=== PATIENT | female | born 1955 | race Caucasian/White ===

== ENCOUNTER 2019-10-20 07:46 | Inpatient (IN) | payer BC, OTHER ==
[~2019-10-20] VITALS: Ht 167.6 cm; Wt 111.0 kg
[2019-10-20] MEDS ORDERED: HYDROmorphone HCL 2 MG/ML VL IV ONE (08:15)
[2019-10-20] MEDS ORDERED: PROMETHAZINE HCL 25 MG/ML 1ML IV ONE (08:15)
[2019-10-20] MEDS ORDERED: SODIUM CHLORIDE 0.9% 1,000 ML IV ONE (08:21)
[2019-10-20 08:52] LABS: Basophils # (auto) 0 uL; Basophils % (auto) 0.5 % (0.0-2.0); Eosinophils # (auto) 0.1 uL; Eosinophils % (auto) 0.7 % (0.0-7.0); Hematocrit 41.8 % (36.0-46.0); Hemoglobin 13.5 g/dL (12.2-16.2); Lymphocytes # (auto) 1.5 uL; Lymphocytes % (auto) 18.4 % (10.0-50.0); Mean Corpuscular Hemoglobin 26.5 pg (28.0-32.0); Mean Corpuscular Hgb Conc. 32.2 g/dL (32.0-36.0); Mean Corpuscular Volume 82.4 fL (80.0-100.0); Monocytes # (auto) 0.4 uL; Monocytes % (auto) 5.3 % (0.0-12.0); Neutrophils # (auto) 6.1 uL; Neutrophils % (auto) 75.1 % (37.0-80.0); Platelet Count (auto) 276 10^3/uL (140-450); Red Blood Cells 5.07 10^6/uL (4.0-5.20); Red Cell Distribution Width 15.3 % (11.8-14.3); White Blood Cell 8.1 10^3/uL (4.4-10.8)
[2019-10-20 09:10] LABS: Albumin 3.8 g/dL (3.4-5.0); Anion Gap 8 (5-15); Blood Urea Nitrogen 13 mg/dL (7-18); Calcium 8.7 mg/dL (8.5-10.1); Carbon Dioxide 27 mmol/L (21-32); Chloride 104 mmol/L (98-107); Glucose 132 mg/dL (74-106); Potassium 4.4 mmol/L (3.5-5.1); Sodium 139 mmol/L (136-145)
[2019-10-20 09:11] LABS: INR 0.99 (0.9-1.15)
[2019-10-20 09:12] LABS: Alanine Aminotransferase 27 U/L (13-56); Aspartate Aminotransferase 14 U/L (15-37); BUN/Creatinine Ratio 15.9; GFR African American 91 mL/min; GFR Non-African American 75 mL/min
[2019-10-20 09:17] LABS: Alkaline Phosphatase 104 U/L (45-117); Bilirubin, Total 0.8 mg/dL (0.2-1.0); Total Protein 7.6 g/dL (6.4-8.2)
[2019-10-20] MEDS ORDERED: DEXTROSE (50%) 50ML SYRG IV PRN (11:15)
[2019-10-20] MEDS ORDERED: TEMAZEPAM 15 MG CAP PO PRN (11:15)
[2019-10-20] MEDS ORDERED: traMADol HCL 50 MG TAB PO PRN (11:15)
[2019-10-20] MEDS: SODIUM CHLORIDE 0.9% 1,000 ML IV SCH ×2 (11:52→23:12)
[2019-10-20] MEDS: MORPHINE SULF INJ 2 MG/ML SYRINGE 1ML IV PRN ×3 (11:52→20:48)
[2019-10-20 13:08] LABS: Urine Bacteria NONE SEEN /hpf (None Seen); Urine Blood Negative /uL (Negative); Urine Mucus FEW (None Seen); Urine Specific Gravity 1.022 (1.001-1.035); Urine WBC 1 /hpf (0 - 5)
--- NOTE | 2019-10-20 15:30 | NUR ---
Patient arrived to the floor
--- NOTE | 2019-10-20 16:02 | NUR ---
Cardio Dr Hammonds at bedside. Cleared the patient for surgery.
[2019-10-20 17:00] VITALS: BP 150/84
--- NOTE | 2019-10-20 19:10 | NUR ---
Opening Shift Note Received report from KAREN Cavazos RN. Assumed care of patient, awake and alert. No S/S of distress/SOB but complaints of pain to right leg and back pain. Will given pain medication as ordered. Family at bedside. Instructed on POC and to call for assist PRN, will continue to monitor for changes Q1hr and PRN. Bed placed in lowest position, bed alarm turned on and call light within reach.
[2019-10-20 20:00] VITALS: BP 140/82
--- NOTE | 2019-10-20 21:00 | NUR ---
Dr Servin at bedside explaining to the patient that surgery will be move up until 10/21/19 at 0700. Patient verbalized understanding.
[2019-10-20 22:00] VITALS: BP 140/82
[2019-10-20] MEDS: ATORVASTATIN 20 MG TAB PO SCH (22:00)
[2019-10-20] MEDS: diphenhdrAMINE HCL 25 MG CAP PO PRN (22:09)
[2019-10-20] MEDS: HYDROmorphone HCL 2 MG/ML VL IV PRN (22:09)
[2019-10-21] MEDS: HYDROmorphone HCL 2 MG/ML VL IV PRN ×4 (00:11→08:10)
[2019-10-21 05:00] VITALS: BP 114/69
--- NOTE | 2019-10-21 08:10 | NUR ---
Dilaudid Inj 1 mg given for pain level at 06/03. Family at bedside.
[2019-10-21] MEDS: SODIUM CHLORIDE 0.9% 1,000 ML IV SCH (08:17)
[2019-10-21 08:47] VITALS: BP 111/69
--- NOTE | 2019-10-21 09:03 | NUR ---
Transferred patient via bed to PACU/OR/Surgery. Patient awake, oriented x4, no acute distress noted, on Graham catheter draining clear, yellowish with light pink stained urine. IV line intact and patent. Two daughters at bedside. Endorsed patient to QUILL PICKING MACHINE OPERATORBROOKLYNN Hendricks.
[2019-10-21] MEDS ORDERED: ceFAZolin 1GM/50ML 100 ML IV ONE (09:11)
[2019-10-21] MEDS: METOPROLOL SUCCINATE XL 50 MG TAB PO SCH (10:00)
[2019-10-21] MEDS: CITALOPRAM HYDROBR 20 MG TAB PO SCH (10:00)
--- NOTE | 2019-10-21 10:00 | NUR ---
Patient off unit. At Surgery.
--- NOTE | 2019-10-21 10:04 | NUR ---
Dr. Palafox came over. made aware patient at Surgery at this time.
[2019-10-21] MEDS ORDERED: fentaNYL CITRATE 100 MCG/2 ML VL ONE (11:11)
[2019-10-21] MEDS ORDERED: ROCURONIUM 10MG/ML 10ML VIAL IV ONE (11:12)
[2019-10-21] MEDS ORDERED: ONDANSETRON HCL 4 MG/2 ML VIAL IV PRN (13:15)
[2019-10-21] MEDS ORDERED: hydrALAZINE HCL 20 MG/ML VL IV PRN (13:15)
[2019-10-21] MEDS ORDERED: ePHEDrine SULFATE 50 MG/ML AMP IV PRN (13:15)
--- NOTE | 2019-10-21 13:37 | NUR ---
Pharmacist called regarding the Ephedrine order, patient has Pseudoephedrine allergy. Informed the Pharmacist that patient is at OR/Surgery at this time, they have to call Surgery.
[2019-10-21] MEDS: MORPHINE SULF INJ 2 MG/ML SYRINGE 1ML IV PRN ×3 (13:47→14:35)
--- NOTE | 2019-10-21 14:30 | NUR ---
Patient back to room post op intramedullary nailing of the right femur. Surgical dressing on the right hip clean, dry and intact, on Graham catheter with cloudy, pink stained yellowish urine.
[2019-10-21] MEDS: ceFAZolin 1GM/50ML 50 ML IV SCH ×2 (14:52→21:56)
[2019-10-21 16:44] VITALS: BP 130/68
--- NOTE | 2019-10-21 17:00 | NUR ---
Patient's daughter complained that patient on 271A is always talking on the phone loudly, smells like cigarette, requested if patient can be transferred to another room so the patient could rest better post surgery. Charge Nurse Jace made aware. Jace said patient can be transferred to Room 272A.
--- NOTE | 2019-10-21 17:15 | NUR ---
Patient upgraded to Telemetry. Transferred from Room 271B to 272A.
[2019-10-21] MEDS: ACETAMINOPHEN 500 MG TAB PO PRN (20:05)
[2019-10-21] MEDS: PROMETHAZINE HCL 25 MG/ML 1ML IV PRN (20:05)
[2019-10-21 21:40] VITALS: BP 134/69
[2019-10-21] MEDS: ATORVASTATIN 20 MG TAB PO SCH ×2 (21:56→22:00)
[2019-10-22] MEDS: ACETAMINOPHEN 500 MG TAB PO PRN ×2 (03:14→18:54)
[2019-10-22 04:52] VITALS: BP 113/53
[2019-10-22] MEDS: ceFAZolin 1GM/50ML 50 ML IV SCH ×3 (05:46→21:49)
[2019-10-22 06:48] LABS: Basophils # (auto) 0 uL; Basophils % (auto) 0.3 % (0.0-2.0); Eosinophils # (auto) 0.1 uL; Eosinophils % (auto) 0.8 % (0.0-7.0); Hematocrit 30.4 % (36.0-46.0); Hemoglobin 10.2 g/dL (12.2-16.2); Lymphocytes # (auto) 1.7 uL; Mean Corpuscular Hemoglobin 27.8 pg (28.0-32.0); Mean Corpuscular Hgb Conc. 33.7 g/dL (32.0-36.0); Mean Corpuscular Volume 82.5 fL (80.0-100.0); Monocytes # (auto) 0.9 uL; Monocytes % (auto) 9.4 % (0.0-12.0); Neutrophils # (auto) 7.1 uL; Neutrophils % (auto) 72.5 % (37.0-80.0); Platelet Count (auto) 201 10^3/uL (140-450); Red Blood Cells 3.69 10^6/uL (4.0-5.20); Red Cell Distribution Width 15.4 % (11.8-14.3); White Blood Cell 9.8 10^3/uL (4.4-10.8)
[2019-10-22 07:06] LABS: Calcium 8.3 mg/dL (8.5-10.1); Potassium 3.6 mmol/L (3.5-5.1)
[2019-10-22 07:09] LABS: BUN/Creatinine Ratio 12.1
[2019-10-22] MEDS: MORPHINE SULF INJ 2 MG/ML SYRINGE 1ML IV PRN (07:39)
--- NOTE | 2019-10-22 08:15 | NUR ---
Patient's gown off, on the right side of the bed, patient covered only with blanket. Patient stated she took off her gown because it's hot.
[2019-10-22 09:00] VITALS: BP 116/69
--- NOTE | 2019-10-22 10:20 | NUR ---
Explained to patient she needs to be put on a hospital gown before the physical therapy starts.
[2019-10-22] MEDS: ENOXAPARIN SOD 40 MG/0.4 ML SYRINGE SC SCH (10:31)
[2019-10-22] MEDS: CITALOPRAM HYDROBR 20 MG TAB PO SCH (10:32)
[2019-10-22] MEDS: METOPROLOL SUCCINATE XL 50 MG TAB PO SCH (10:32)
[2019-10-22] MEDS: HYDROmorphone HCL 2 MG/ML VL IV PRN (10:34)
--- NOTE | 2019-10-22 10:34 | NUR ---
Patient asked for pain medication before her physical therapy starts, stated her right hip and leg pain is going up. Dilaudid Inj 1 mg given for pain as ordered.
--- NOTE | 2019-10-22 10:37 | NUR ---
Patient complained of pain when assisted to be turned. Patient unable to turn, stated she's scared. Daughter at bedside.
--- NOTE | 2019-10-22 10:38 | NUR ---
Changed the surgical dressing on the right hip area/upper leg. Surgical mercedez intact, with minimal bleeding on the upper incision site, pat dry with sterile gauze, applied Xeroform, covered with bordered gauze. Patient complained of pain when turned.
--- NOTE | 2019-10-22 10:39 | NUR ---
Dr. Palafox ordered Hemoglobin and Hematocrit level at 1500 pm today, and ordered to ask Dr. Servin if patient should go to rehab on discharge.
--- NOTE | 2019-10-22 10:40 | NUR ---
Dr. Palafox at bedside. made aware patient complained of stomach cramps, asked if she can have Tums, patient also complained of difficulty sleeping at night, stated she takes Melatonin and Benadryl daily at home for insomnia. Dr. Palafox explained to patient the risks of taking Benadryl daily to fall asleep. MD ordered Tums as needed for stomach distress and Melatonin at bedtime as needed for insomnia. Daughter at bedside.
--- NOTE | 2019-10-22 10:40 | NUR ---
Patient asked for Tylenol for pain. Explained to patient she just had Dilaudid Inj. Tylenol PO not given at this time. Daughter at bedside.
--- NOTE | 2019-10-22 10:45 | NUR ---
Daughter asked if patient can have wheelchair on discharge . Explained to patient and daughter a Environmental Engineer Consult for request for wheelchair will be put in.
--- NOTE | 2019-10-22 10:46 | NUR ---
Informed patient and daughter that [facility] does not carry Melatonin as per Pharmacy. Daughter said she will call her sister to bring the Melatonin from home.
[2019-10-22] MEDS ORDERED: CALCIUM CARB 500 MG CHEW TAB PO PRN (11:15)
[2019-10-22] MEDS ORDERED: MELATONIN 10 MG PO PRN (11:15)
--- NOTE | 2019-10-22 11:30 | NUR ---
TAHMINA Lugo unable to complete the patient's physical therapy. Patient is confused, yelling in pain when turned or moved.
--- NOTE | 2019-10-22 11:32 | NUR ---
Patient in chair for physical therapy. Daughter at bedside.
--- NOTE | 2019-10-22 11:40 | NUR ---
About 1200 ml of light leonid urine emptied form the Graham catheter. Addendum: 10/22/19 at 1447 by Leona Lam RN from
--- NOTE | 2019-10-22 11:43 | NUR ---
Daughter said patient does not get confused with Morphine.
--- NOTE | 2019-10-22 11:44 | NUR ---
Dr. Palafox made aware patient gets confused with Dilaudid Inj. ordered Morphine Sulf Inj 1mg Q6 PRN for severe pain.
--- NOTE | 2019-10-22 11:45 | NUR ---
Paged Physical Therapist
[2019-10-22] MEDS ORDERED: MORPHINE SULFATE 4 MG/ML SYR/VIAL IV PRN (12:00)
[2019-10-22] MEDS ORDERED: MORPHINE SULF INJ 2 MG/ML SYRINGE 1ML IV PRN (12:00)
--- NOTE | 2019-10-22 12:04 | NUR ---
Informed Dr. Palafox that patient's daughter requested if patient can have Tylenol w/Codeine, not the regular Tylenol. Dr. Palafox said patient has orders for Morphine Sulf Inj 1 mg already, will not order Tylenol w/Codeine.
[2019-10-22 12:30] VITALS: BP 155/81
--- NOTE | 2019-10-22 13:20 | NUR ---
Dr. Servin came over to see the patient. MD is aware patient got confused after Dilaudid Inj. Dr. Servin said it's okay to keep the Graham catheter for the next two days. Patient is scared to walk during physical therapy.
--- NOTE | 2019-10-22 15:05 | NUR ---
Patient stated it's so hot in the room. Room is very cold at 65 F. ANUM Man said the patient on Bed B said patient was trying to get up from bed. Patient kept saying "yes," "alright" when asked a question where she is. Patient denies pain, denies stomach distress. Informed Charge Nurse Tamara that patient needs a sitter.
[2019-10-22 15:29] LABS: Hematocrit 29.1 % (36.0-46.0); Hemoglobin 9.8 g/dL (12.2-16.2)
--- NOTE | 2019-10-22 16:10 | NUR ---
Riky Russell stated that patient takes Celexa 10 mg, Melatonin 10 mg anf Addendum: 10/22/19 at 1629 by Leona Lam RN and Benadryl at home.
[2019-10-22] MEDS ORDERED: MELA3TAB27 PO (16:31)
[2019-10-22] MEDS ORDERED: DIPH25CA66 PO (16:31)
[2019-10-22] MEDS ORDERED: CITA10TA59 PO (16:31)
--- NOTE | 2019-10-22 16:40 | NUR ---
Daughter Yvonne asked if patient's orientation improves, will the patient be moved to another room. Informed Yvonne that if patient's orientation improves, the sitter will be discontinued.
--- NOTE | 2019-10-22 16:40 | NUR ---
Patient transferred via bed from Room 272 A to Room 287 B. Sushil Perla at bedside.
[2019-10-22 16:49] VITALS: BP 136/74
[2019-10-22 17:00] VITALS: BP 121/67
--- NOTE | 2019-10-22 18:20 | NUR ---
Daughter Yvonne at the Nurse Station looking for the Charge Nurse, asking if she can stay with the patient overnight. Patient in a sitter room. Informed the daughter the Charge Nurses are giving endorsement at this time.
--- NOTE | 2019-10-22 18:54 | NUR ---
Patient stated she has headache. Tylenol PO given for pain. Daughter at bedside. Sitter at bedside.
--- NOTE | 2019-10-22 19:20 | NUR ---
Opening Shift Note Received report from Leona OVERTON. Assumed care of patient, awake but confused, daughter at bedside. Sitter for safety. No S/S of distress/SOB or pain. Informed daughter on POC and sitter to call for assist PRN. Fall precaution measures in place, will continue to monitor for changes Q1hr and PRN.
[2019-10-22] MEDS: ATORVASTATIN 20 MG TAB PO SCH (21:54)
[2019-10-22 21:59] VITALS: BP 139/68
[2019-10-23] MEDS ORDERED: HYDROcodone-ACET 7.5/325MG TAB PO PRN (00:30)
[2019-10-23 05:00] VITALS: BP 142/64
[2019-10-23 06:10] LABS: Hemoglobin 9.7 g/dL (12.2-16.2)
[2019-10-23] MEDS: ceFAZolin 1GM/50ML 50 ML IV SCH ×2 (06:10→15:00)
[2019-10-23] MEDS: METOPROLOL SUCCINATE XL 50 MG TAB PO SCH (08:59)
[2019-10-23 09:08] VITALS: BP 133/65
[2019-10-23] MEDS: CITALOPRAM HYDROBR 20 MG TAB PO SCH (10:53)
[2019-10-23] MEDS: ENOXAPARIN SOD 40 MG/0.4 ML SYRINGE SC SCH (10:54)
--- NOTE | 2019-10-23 12:01 | NUR ---
Called [facility] [phone] to ask if patient has SNF benefit and which are their participating facilities-was left on hold for several minutes-not able to speak with a live person and not able to leave a message. Faxed same request to [phone].
--- NOTE | 2019-10-23 12:27 | NUR ---
Nutrition Assessment Notes please see attached link for complete assessment Est. Needs ABW 84 [id number] kcal (20-23 kcal/kgBW), 84-92 gms pro (1.0-1.1 gms/kgBW). Will continue to monitor pertinent labs and reassess nutrient need prn Addendum: 10/23/19 at [address] Amended: Links added.
[2019-10-23 13:00] VITALS: BP 126/71
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
[2019-10-23] MEDS: PROMETHAZINE HCL 25 MG/ML 1ML IV PRN (18:20)
--- NOTE | 2019-10-23 18:54 | NUR ---
DRESSING PEELING OFF FROM SKIN. DRESSING CHANGED USING STERILE TECHNIQUE. PATIENT TOLERATED WELL.
--- NOTE | 2019-10-23 20:00 | NUR ---
Opening Shift Note Assumed care of patient, awake and alert. No S/S of distress/SOB or pain. Instructed on POC and to call for assist PRN, will continue to monitor for changes Q1hr and PRN.Dressing in the right hip femur dry and intact, sitter at bedside.
[2019-10-23] MEDS: ATORVASTATIN 20 MG TAB PO SCH (21:33)
[2019-10-23 21:43] VITALS: BP 125/56
--- NOTE | 2019-10-24 02:14 | NUR ---
Daughter Kinjalanna called and asked how is her mother, and said do not give the celexa till her mom can express herself normally.
[2019-10-24 05:33] VITALS: BP 124/58
[2019-10-24 07:36] LABS: Hemoglobin 9.2 g/dL (12.2-16.2)
--- NOTE | 2019-10-24 07:41 | NUR ---
Report given to Ashish Limon , patient is resting no distress.
--- NOTE | 2019-10-24 09:29 | NUR ---
8081 10/24/19 Contacted Janeth at [facility] [phone]-she requested that I fax clinical information to her at [phone]-faxed information as requested-per Janeth she will forward it to [facility] and will call me back with a contact for supportive employment case manager. Along with clinical information faxed to [facility] I requested assistance with SNF placement/contracted facilities-as well as asking who is responsible for providing in patient authorization.
[2019-10-24] MEDS: CITALOPRAM HYDROBR 20 MG TAB PO SCH (10:00)
[2019-10-24] MEDS: METOPROLOL SUCCINATE XL 50 MG TAB PO SCH (10:00)
[2019-10-24] MEDS: ENOXAPARIN SOD 40 MG/0.4 ML SYRINGE SC SCH (10:43)
[2019-10-24 13:00] VITALS: BP 126/78
--- NOTE | 2019-10-24 14:16 | NUR ---
Contacted Beverley at [facility] regarding needing assistance with discharge planning for this patient. Per Beverley-discharge planning requests need to be faxed to their out of area department [phone] then someone from that department will contact us. Faxed SNF order to provided number.
[2019-10-24] MEDS: PROMETHAZINE HCL 25 MG/ML 1ML IV PRN (15:42)
[2019-10-24] MEDS: ACETAMINOPHEN 500 MG TAB PO PRN (15:42)
[2019-10-24 17:29] VITALS: BP 115/64
--- NOTE | 2019-10-24 18:00 | NUR ---
Changed patients dressing to right hip. Cleansed with sterile normal saline, pat dry and covered with Primapore dressing. There are 4 sites . All mercedez are intact and approximated with no signs of infection noted at this time. Dr. Servin was here at bedside to discuss plan of care with patient.
[2019-10-24] MEDS ORDERED: DOCUSATE SOD 100 MG CAP PO PRN (18:45)
[2019-10-24] MEDS: ATORVASTATIN 20 MG TAB PO SCH (21:03)
[2019-10-24] MEDS: HYDROcodone-ACET 5/325MG TAB PO PRN (21:04)
[2019-10-24] MEDS: diphenhdrAMINE HCL 25 MG CAP PO PRN (21:04)
[2019-10-24 21:26] VITALS: BP 125/61
[2019-10-25 04:38] VITALS: BP 128/53
--- NOTE | 2019-10-25 07:30 | NUR ---
Opening Shift Note Assumed care of patient, awake and alert. No S/S of distress/SOB. For safety patients bed is locked, in the lowest position with 2 side rails up and the call light with in reach. Instructed on POC and to call for assist PRN, will continue to monitor for any changes in condition.
[2019-10-25 08:52] LABS: Hematocrit 28.3 % (36.0-46.0); Hemoglobin 9.5 g/dL (12.2-16.2)
[2019-10-25 09:00] VITALS: BP 131/64
[2019-10-25] MEDS: CITALOPRAM HYDROBR 20 MG TAB PO SCH (09:37)
[2019-10-25] MEDS: METOPROLOL SUCCINATE XL 50 MG TAB PO SCH (09:37)
[2019-10-25] MEDS: ENOXAPARIN SOD 40 MG/0.4 ML SYRINGE SC SCH (09:39)
[2019-10-25] MEDS: HYDROcodone-ACET 5/325MG TAB PO PRN ×3 (09:40→21:50)
[2019-10-25 12:33] VITALS: BP 102/58
--- NOTE | 2019-10-25 13:06 | NUR ---
Correa catheter dc'd Correa dc'd with clean technique following deflation of balloon. Patient tolerated well with no complaints of pain, will monitor for first void after correa is out.
--- NOTE | 2019-10-25 15:05 | NUR ---
Dr. Reis at bedside to assess patient and discuss plan of care. Order received, will document and carry out.
[2019-10-25] MEDS ORDERED: IBUPROFEN 600 MG TAB PO PRN (15:15)
--- NOTE | 2019-10-25 16:03 | NUR ---
Patient notified me that she just urinated in the bed singh filling it up, approximately 400 mL.
[2019-10-25 16:57] VITALS: BP 122/71
[2019-10-25 21:31] VITALS: BP 126/58
[2019-10-25] MEDS: ATORVASTATIN 20 MG TAB PO SCH (21:50)
[2019-10-25] MEDS: diphenhdrAMINE HCL 25 MG CAP PO PRN (21:50)
--- NOTE | 2019-10-25 23:16 | NUR ---
Moved patient into room 280 B. Patient is alert and oriented x 4. Her demeanor is appropriate and the patient is calm.
--- NOTE | 2019-10-26 03:00 | NUR ---
Received report from BROOKLYNN Limon and assumed care.
[2019-10-26 04:45] VITALS: BP 133/71
[2019-10-26 06:24] LABS: Basophils # (auto) 0.1 uL; Basophils % (auto) 0.8 % (0.0-2.0); Eosinophils # (auto) 0.5 uL; Eosinophils % (auto) 5.6 % (0.0-7.0); Hemoglobin 9.8 g/dL (12.2-16.2); Lymphocytes # (auto) 1.7 uL; Lymphocytes % (auto) 19.9 % (10.0-50.0); Mean Corpuscular Hemoglobin 28.2 pg (28.0-32.0); Mean Corpuscular Hgb Conc. 33.7 g/dL (32.0-36.0); Mean Corpuscular Volume 83.8 fL (80.0-100.0); Monocytes # (auto) 0.6 uL; Monocytes % (auto) 6.9 % (0.0-12.0); Neutrophils # (auto) 5.8 uL; Neutrophils % (auto) 66.8 % (37.0-80.0); Nucleated Red Blood Cells % 0.2 %; Platelet Count (auto) 308 10^3/uL (140-450); Red Blood Cells 3.46 10^6/uL (4.0-5.20); Red Cell Distribution Width 15.5 % (11.8-14.3); White Blood Cell 8.6 10^3/uL (4.4-10.8)
[2019-10-26 06:48] LABS: Calcium 8.7 mg/dL (8.5-10.1); Potassium 3.6 mmol/L (3.5-5.1)
[2019-10-26 06:50] LABS: BUN/Creatinine Ratio 23.1
[2019-10-26 09:00] VITALS: BP 121/64
[2019-10-26] MEDS: ENOXAPARIN SOD 40 MG/0.4 ML SYRINGE SC SCH (09:26)
[2019-10-26] MEDS: CITALOPRAM HYDROBR 20 MG TAB PO SCH (09:28)
[2019-10-26] MEDS: METOPROLOL SUCCINATE XL 50 MG TAB PO SCH (09:28)
[2019-10-26] MEDS: HYDROcodone-ACET 5/325MG TAB PO PRN ×2 (10:29→18:05)
--- NOTE | 2019-10-26 11:44 | NUR ---
right hip dressing changed, intact. pt resting comfortably. daughter at bedside.
[2019-10-26 13:00] VITALS: BP 166/61
[2019-10-26] MEDS ORDERED: BISACODYL 10 MG RECT SUPP PR ONE (13:15)
[2019-10-26 17:00] VITALS: BP 132/59
--- NOTE | 2019-10-26 17:05 | NUR ---
Discharge planning per consult, patient has orders to dc to SNF. [facility] [place] [id number] [place] [id number] [facility] received a follow up call from Estrellita who advised that patient was accepted into room [address] Espinal. Transportation is pending. Addendum: 10/26/19 at 1757 by KARRI LANDAVERDE Transportation is picking patient up at 7 pm. [facility] [phone], nurse Elsy was advised.
--- NOTE | 2019-10-26 18:51 | NUR ---
REPORT CALLED TO LEATHA, RECEIVING NURSE AT [facility]. PT TO TRANSPORT TO FACILITY AT 1900.
--- NOTE | 2019-10-26 20:49 | NUR ---
Discharge instructions given as ordered. Encourage to follow up with PMD as instructed. All questions and concerns addressed. Patient verbalized understanding. Medication reconciliation form completed and copy given to patient. Refused vaccines. IV removed with catheter intact, pressure dressing applied. Patient taken to vehicle via gurney with all personal belongings, accompanied by [facility] transport staff. No distress noted at time of departure. patient advised she will call daughter with address and departure time. patient going to [facility].
== END 2019-10-26 20:30 | DRG 481 ==
LOC: ER 07:46 → EDBD 07:46 → OVERFLOW 07:47 → WEST WING 11:57 → TELE-WESTW 10-21 17:15 → WEST WING 10-25 11:55
PROVIDERS: ADMIT Internal Medicine; ATTEND Internal Medicine Nephrology
PROC: 0QU60KZ Supplement Right Upper Femur with Nonautologous Tissue Substitute, Open Approach (ICD-10-PCS; 2019-10-21)
PROC: 0QS604Z Reposition Right Upper Femur with Internal Fixation Device, Open Approach (ICD-10-PCS; principal; 2019-10-21 11:01)
DX: S72.21XA Displaced subtrochanteric fracture of right femur, initial encounter for closed fracture (principal); D62 Acute posthemorrhagic anemia; E11.9 Type 2 diabetes mellitus without complications; E66.01 Morbid (severe) obesity due to excess calories; F32.9 Major depressive disorder, single episode, unspecified; F41.9 Anxiety disorder, unspecified; I10 Essential (primary) hypertension; G89.29 Other chronic pain; W01.0XXA Fall on same level from slipping, tripping and stumbling without subsequent striking against object, initial encounter; Y93.89 Activity, other specified; Z68.39 Body mass index [BMI] 39.0-39.9, adult; Z83.3 Family history of diabetes mellitus; Z82.49 Family history of ischemic heart disease and other diseases of the circulatory system; Y92.89 Other specified places as the place of occurrence of the external cause; Y99.8 Other external cause status; Z88.8 Allergy status to other drugs, medicaments and biological substances
CPT/HCPCS: 36415; 71045; 72192; 80048; 80053; 81001; 83036; 84484; 85014; 85018; 85025; 85610; 85730; 86850; 86900; 86901; 93005; 93306; 96361; 96374; 96375; 97110; 97116; 97530; A4565; C1713; C1769; G0378; J0690